=== PATIENT | female | born 1980 | race African-American/Black ===

== ENCOUNTER 2019-09-28 07:24 | Emergency (ER) | payer SELFPAY ==
[~2019-09-28] VITALS: Ht 165.1 cm; Wt 62.6 kg
[2019-09-28 07:51] VITALS: BP 142/96
== END 2019-09-28 08:22 | disposition home or self-care (01) ==
LOC: ER 07:24
DX: L02.414 Cutaneous abscess of left upper limb (principal); J45.909 Unspecified asthma, uncomplicated; F15.10 Other stimulant abuse, uncomplicated; Z88.6 Allergy status to analgesic agent; Z88.1 Allergy status to other antibiotic agents